=== PATIENT | male | born 1960 ===

== ENCOUNTER 2017-10-07 20:45 | Emergency (ER) | payer MEDICAID, OTHER ==
[2017-10-07 23:41] LABS: ALB/GLOB RATIO 1.4 (1.1-1.8); ALBUMIN 4.1 g/dL (3.0-4.8); ALT/SGPT 17 U/L (7-56); AST/SGOT 31 U/L (17-59); BLOOD UREA NITROGEN 23 mg/dL (7-21); CALCIUM 9.1 mg/dL (8.4-10.5); GFR AFRICAN-AMERICAN > 60; GFR NON-AFRICAN AMERICAN > 60
[2017-10-08 00:08] LABS: HEMOGLOBIN 13.3 g/dL (14.0-18.0); MEAN CELL VOLUME 90.4 fl (80.0-105.0); MEAN CORPUSCULAR HEMOGLOBIN 29.1 pg (25.0-35.0); MEAN CORPUSCULAR HGB CONC 32.2 g/dl (31.0-37.0); MEAN PLATELET VOLUME 10.6 fl (7.0-11.0); RBC 4.57 10^6/uL (3.5-6.1); RED CELL DISTRIBUTION WIDTH 12.2 % (11.5-14.5); WHITE BLOOD COUNT 8.1 10^3/ul (4.5-11.0)
[2017-10-08 00:13] LABS: INR 1.18 (0.93-1.08); PARTIAL THROMBOPLASTIN TIME 30.3 Seconds (25.1-36.5); PROTHROMBIN TIME 13.5 SECONDS (9.4-12.5)
--- NOTE | 2017-10-08 00:17 | US ---
EXAM: US Scrotum CLINICAL HISTORY: 57 years old, male; Pain; Scrotum pain; Additional info: Rt testicular swelling TECHNIQUE: Real-time ultrasound of the scrotum with color Doppler and image documentation. COMPARISON: No relevant prior studies available. FINDINGS: Right testicle: No mass. No torsion. Left testicle: 0.4 x 0.4 x 0.4 cm cyst. No torsion. Epididymides: Enlarged, heterogeneous, hypervascular RIGHT epididymis. Scrotum: Large right hydrocele. IMPRESSION: 1. Findings suggestive of RIGHT epididymitis. Clinical correlation and follow up are recommended. 2. Incidental/non-acute findings are described above.
[2017-10-08 00:26] LABS: URINE BILIRUBIN NEGATIVE (NEGATIVE); URINE BLOOD SMALL (NEGATIVE); URINE GLUCOSE (UA) NEGATIVE (NEGATIVE); URINE LEUKOCYTE ESTERASE MODERATE Leu/uL (NEGATIVE); URINE PROTEIN 30 mg/dL (<30 mg/dL); URINE UROBILINOGEN 0.2 E.U./dL (<1 E.U./dL)
[2017-10-08 00:32] LABS: URINE APPEARANCE CLOUDY (CLEAR); URINE COLOR DARK YELLOW (YELLOW)
[2017-10-08 01:36] LABS: URINE BACTERIA MOD (NEG)
== END 2017-10-09 19:02 | disposition home or self-care (01) ==
LOC: ED 20:45
DX: N45.1 Epididymitis (principal)

== ENCOUNTER 2017-10-14 16:58 | Emergency (ER) | payer MEDICAID, OTHER ==
[2017-10-14 17:16] VITALS: RESP 18; TEMP 97.9; BMI 26.2
[2017-10-14 18:47] VITALS: BP 131/76; PULSE 70; O2SAT 99
--- NOTE | 2017-10-14 20:53 | ED PDOC ---
Arrival/HPI - General Chief Complaint: Male Genitourinary Time Seen by Provider: 10/14/17 17:18 Historian: Patient - History of Present Illness Narrative History of Present Illness (Text): 10/14/17 20:51 A 57 year old male presents to the emergency department complaining of persistent right testicular pain for 1 week. Patient was seen last week for same complaint. He was discharged with antibiotics and failed to follow up outpatient. Patient denies any trauma, fever, chills, nausea, vomiting, abdominal pain, urinary symptoms, penile discharge or any other complaints. Time/Duration: 1 week Symptom Course: Unchanged (persistent) Quality: Other Context: Home Past Medical History - Provider Review Nursing Documentation Reviewed: Yes - Infectious Disease Hx of Infectious Diseases: None - Genitourinary/Gynecological Other/Comment: testicular pain - Psychiatric Hx Substance Use: No Family/Social History - Physician Review Nursing Documentation Reviewed: Yes Family/Social History: No Known Family HX Smoking Status: Never Smoked Hx Alcohol Use: No Hx Substance Use: No Allergies/Home Meds Allergies/Adverse Reactions: Allergies No Known Allergies Allergy (Unverified 10/08/17 00:22) Review of Systems - Physician Review All systems were reviewed & negative as marked: Yes - Review of Systems Constitutional: absent: Fevers, Night Sweats Gastrointestinal: absent: Abdominal Pain, Nausea, Vomiting Genitourinary Male: Other (right testicular pain, no penile discharge). absent : Dysuria, Frequency, Hematuria Physical Exam Vital Signs Reviewed: Yes Vital Signs Temp Pulse Resp BP Pulse Ox 10/14/17 18:46 70 18 131/76 99 10/14/17 16:58 97.9 F 75 18 115/75 96 Temperature: Afebrile Blood Pressure: Normal Pulse: Regular Respiratory Rate: Normal Appearance: Positive for: Well-Appearing, Non-Toxic, Comfortable Pain Distress: None Mental Status: Positive for: Alert and Oriented X 3 - Systems Exam Head: Present: Atraumatic, Normocephalic Pupils: Present: PERRL Extroacular Muscles: Present: EOMI Conjunctiva: Present: Normal Mouth: Present: Moist Mucous Membranes Neck: Present: Normal Range of Motion Respiratory/Chest: Present: Clear to Auscultation, Good Air Exchange. No: Respiratory Distress, Accessory Muscle Use Cardiovascular: Present: Regular Rate and Rhythm, Normal S1, S2. No: Murmurs Abdomen: Present: Normal Bowel Sounds. No: Tenderness, Distention, Peritoneal Signs Genitourinary Male: Present: Testicle Tenderness (right), Testicle Swelling ( right). No: Lesions, Penile Discharge, Penile Swelling, Masses Back: Present: Normal Inspection Upper Extremity: Present: Normal Inspection. No: Cyanosis, Edema Lower Extremity: Present: Normal Inspection. No: Edema Neurological: Present: GCS=15, CN II-XII Intact, Speech Normal Skin: Present: Warm, Dry, Normal Color. No: Rashes Psychiatric: Present: Alert, Oriented x 3, Normal Insight, Normal Concentration Medical Decision Making ED Course and Treatment: 10/14/17 20:51 Impression: A 57 year old male with persistent right testicular pain Progress Notes: I have discussed the plan with the patient, who expresses understanding. Patient in agreement with plan to be discharged home. Patient is stable for discharge. Patient was instructed to follow up with urologist or return if symptoms worsen or new concerning symptoms arise. - Scribe Statement The provider has reviewed the documentation as recorded by the Moneibcharlie Williamson Provider Scribe Attestation: All medical record entries made by the Scribe were at my direction and personally dictated by me. I have reviewed the chart and agree that the record accurately reflects my personal performance of the history, physical exam, medical decision making, and the department course for this patient. I have also personally directed, reviewed, and agree with the discharge instructions and disposition. Disposition/Present on Arrival - Present on Arrival Any Indicators Present on Arrival: No History of DVT/PE: No History of Uncontrolled Diabetes: No Urinary Catheter: No History of Decub. Ulcer: No History Surgical Site Infection Following: None - Disposition Have Diagnosis and Disposition been Completed?: Yes Diagnosis: Epididymitis Disposition: HOME/ ROUTINE Disposition Time: 18:00 Condition: GOOD Discharge Instructions (ExitCare): Epididymitis (ED), Testicle Pain (ED) Additional Instructions: Thank you for letting us take care of you today. The emergency medical care you received today was directed at your acute symptoms. If you were prescribed any medication, please fill it and take as directed. It may take several days for your symptoms to resolve. Return to the Emergency Department if your symptoms worsen, do not improve, or if you have any other problems. Please contact your doctor or call one of the physicians/clinics you have been referred to that are listed on the Patient Visit Information form that is included in your discharge packet. Bring any paperwork you were given at discharge with you along with any medications you are taking to your follow up visit. Our treatment cannot replace ongoing medical care by a primary care provider (PCP) outside of the emergency department. Thank you for allowing the [facility] team to be part of your care today. Follow up with Dr. Yang, urology, in 3-4 days for re-evaluation and further management. Prescriptions: Ciprofloxacin [Cipro] 500 mg PO BID #28 tab Ibuprofen [Motrin] 600 mg PO Q6 PRN #20 tab PRN Reason: Pain, Moderate (4-7) Referrals: PCP,NO [Primary Care Provider] - Follow up with primary Jael Yang MD [Staff Provider] - Follow up with primary Forms: [employer] (Japanese)
== END 2017-10-14 19:19 | disposition home or self-care (01) ==
LOC: ED 16:58
DX: N45.1 Epididymitis (principal)

== ENCOUNTER 2017-10-27 10:53 | Emergency (ER) | payer MEDICAID ==
[2017-10-27 10:53] VITALS: BMI 26.2
--- NOTE | 2017-10-27 12:05 | ED PDOC ---
Arrival/HPI - General Chief Complaint: Male Genitourinary Time Seen by Provider: 10/27/17 11:49 Historian: Patient - History of Present Illness Narrative History of Present Illness (Text): 10/27/17 11:56 A 57 year old male presents to the emergency department complaining of right testicular pain for the past several weeks. Patient has been treated in the hospital twice for same compliant. Patient was discharged on Cipro and Ibuprofen , with mild improvement. Patient reports he has not followed up with specialist Dr. Yang for further care as instructed. Patient denies any fever, chills, nausea, vomiting, abdominal pain, urinary symptoms, chest pain, shortness of breath or any other complaints. Time/Duration: Other (several weeks) Symptom Course: Improving Context: Home Associated Symptoms (Text): 10/27/17 12:26 Approximately a one-month history of right swollen painful testicle. Patient has been seen in the emergency department twice previously for this problem. Had an ultrasound and was diagnosed with epididymitis. He reports that the swelling has improved, though it is still present. No abdominal pain nausea vomiting or diarrhea. No genitourinary symptoms. He has been unable to follow up with the urologist due to insurance reasons. Past Medical History - Provider Review Nursing Documentation Reviewed: Yes - Infectious Disease Hx of Infectious Diseases: None - Genitourinary/Gynecological Hx Genitourinary Disorders: Yes Other/Comment: testicular pain - Psychiatric Hx Substance Use: No Family/Social History - Physician Review Nursing Documentation Reviewed: Yes Family/Social History: No Known Family HX Smoking Status: Never Smoked Hx Alcohol Use: No Hx Substance Use: No Allergies/Home Meds Allergies/Adverse Reactions: Allergies No Known Allergies Allergy (Verified 10/27/17 12:33) Review of Systems - Physician Review All systems were reviewed & negative as marked: Yes - Review of Systems Constitutional: absent: Fevers, Night Sweats Respiratory: absent: SOB Cardiovascular: absent: Chest Pain Gastrointestinal: absent: Abdominal Pain, Nausea, Vomiting Genitourinary Male: Other (right testicular pain). absent: Dysuria, Frequency, Hematuria Physical Exam Appearance: Positive for: Well-Appearing, Non-Toxic, Comfortable Pain Distress: None Mental Status: Positive for: Alert and Oriented X 3 - Systems Exam Head: Present: Atraumatic, Normocephalic Pupils: Present: PERRL Extroacular Muscles: Present: EOMI Conjunctiva: Present: Normal Mouth: Present: Moist Mucous Membranes Neck: Present: Normal Range of Motion Respiratory/Chest: Present: Clear to Auscultation, Good Air Exchange. No: Respiratory Distress, Accessory Muscle Use Cardiovascular: Present: Regular Rate and Rhythm, Normal S1, S2. No: Murmurs Abdomen: Present: Normal Bowel Sounds. No: Tenderness, Distention, Peritoneal Signs Genitourinary Male: Present: Testicle Tenderness (Mild tenderness to right testicle), Testicle Swelling (Right testicle slightly larger than a golf ball, no erythema or discharge), Other (Normal exam of left testicle). No: Penile Discharge, Penile Swelling, Masses, Erythema Back: Present: Normal Inspection Upper Extremity: Present: Normal Inspection. No: Cyanosis, Edema Lower Extremity: Present: Normal Inspection. No: Edema Neurological: Present: GCS=15, CN II-XII Intact, Speech Normal, Motor Func Grossly Intact Skin: Present: Warm, Dry, Normal Color. No: Rashes Psychiatric: Present: Alert, Oriented x 3, Normal Insight, Normal Concentration Medical Decision Making ED Course and Treatment: 10/27/17 11:56 Impression: A 57 year old male with right testicular pain Plan: -- Labs -- Urine culture and Urinalysis -- Reassess and disposition Prior Visits: Notes and results from previous visits were reviewed. Patient had a testicular ultrasound done on 10/07/17, which showed: Report Date : 10/08/2017 00:16:00 EXAM: US Scrotum Dictated By: Casa Leums MD IMPRESSION: 1. Findings suggestive of RIGHT epididymitis. Clinical correlation and follow up are recommended. 2. Incidental/non-acute findings are described above. Progress Notes: 10/27/17 13:05 Discussed in detail with the patient that he needs to follow-up with the urologist. Follow up in the emergency department as needed. Patient reports that he was feeling better on the Cipro. He will be given additional prescription along with Naprosyn. - Lab Interpretations Lab Results: 10/27/17 12:30 Lab Results 10/27/17 12:30: Urine Color Yellow, Urine Appearance Clear, Urine pH 6.0, Ur Specific [place] 1.020, Urine Protein Negative, Urine Glucose (UA) Negative, Urine Ketones Negative, Urine Blood Negative, Urine Nitrate Negative, Urine Bilirubin Negative, Urine Urobilinogen 0.2, Ur Leukocyte Esterase Trace H, Urine RBC 0 - 2, Urine WBC 2 - 5, Ur Epithelial Cells None, Amorphous Sediment Few, Urine Bacteria Few 10/27/17 12:30: WBC 5.9 D, RBC 4.49, Hgb 12.9 L, Hct 40.3 L, MCV 89.8, MCH 28.7 , MCHC 32.0, RDW 12.4, Plt Count 237, MPV 10.6, Gran % 68.4 H, Lymph % (Auto) 23.6, [place] % (Auto) 5.6, Eos % (Auto) 1.9, Baso % (Auto) 0.5, Gran # 4.03, Lymph # (Auto) 1.4, [place] # (Auto) 0.3, Eos # (Auto) 0.1, Baso # (Auto) 0.03 I have reviewed the lab results: Yes - Scribe Statement The provider has reviewed the documentation as recorded by the Antoni Williamson Provider Scribe Attestation: All medical record entries made by the Scribe were at my direction and personally dictated by me. I have reviewed the chart and agree that the record accurately reflects my personal performance of the history, physical exam, medical decision making, and the department course for this patient. I have also personally directed, reviewed, and agree with the discharge instructions and disposition. Disposition/Present on Arrival - Present on Arrival Any Indicators Present on Arrival: No History of DVT/PE: No History of Uncontrolled Diabetes: No Urinary Catheter: No History of Decub. Ulcer: No History Surgical Site Infection Following: None - Disposition Have Diagnosis and Disposition been Completed?: Yes Diagnosis: Epididymitis Disposition: HOME/ ROUTINE Disposition Time: 13:06 Patient Plan: Discharge Condition: GOOD Discharge Instructions (ExitCare): Epididymitis, Epididymo-orchitis (ED) Prescriptions: Ciprofloxacin HCl [Cipro] 500 mg PO BID #20 tab Naproxen [Naprosyn] 500 mg PO BID #14 tab Referrals: Jael Yang MD [Staff Provider] - Follow up with primary Forms: [employer] (Latvian)
[2017-10-27 12:43] LABS: BASO # 0.03 K/mm3 (0.0-2.0); BASO % 0.5 % (0.0-3.0); EOS # 0.1 (0.0-0.7); EOS % 1.9 % (1.5-5.0); GRAN # 4.03 (1.4-6.5); GRAN % 68.4 % (50.0-68.0); HEMOGLOBIN 12.9 g/dL (14.0-18.0); LYMPH # 1.4 (1.2-3.4); LYMPH % 23.6 % (22.0-35.0); MEAN CELL VOLUME 89.8 fl (80.0-105.0); MEAN CORPUSCULAR HEMOGLOBIN 28.7 pg (25.0-35.0); MEAN PLATELET VOLUME 10.6 fl (7.0-11.0); MONO # 0.3 (0.1-0.6); MONO % 5.6 % (1.0-6.0); RBC 4.49 10^6/uL (3.5-6.1); RED CELL DISTRIBUTION WIDTH 12.4 % (11.5-14.5); URINE BILIRUBIN NEGATIVE (NEGATIVE); URINE BLOOD NEGATIVE (NEGATIVE); URINE GLUCOSE (UA) NEGATIVE (NEGATIVE); URINE LEUKOCYTE ESTERASE TRACE Leu/uL (NEGATIVE); URINE PROTEIN NEGATIVE mg/dL (<30 mg/dL); URINE UROBILINOGEN 0.2 E.U./dL (<1 E.U./dL); WHITE BLOOD COUNT 5.9 10^3/ul (4.5-11.0)
[2017-10-27 12:59] LABS: URINE APPEARANCE CLEAR (CLEAR); URINE COLOR YELLOW (YELLOW)
[2017-10-27 13:02] LABS: URINE BACTERIA FEW (NEG); URINE RBC 0 - 2 /hpf (0-2)
[2017-10-27 13:03] LABS: URINE AMORPHOUS SEDIMENT FEW
[2017-10-27 13:10] VITALS: BP 125/75; PULSE 60; RESP 18; TEMP 97.9; O2SAT 99
== END 2017-10-27 13:17 | disposition home or self-care (01) ==
LOC: ED 10:53
DX: N45.1 Epididymitis (principal)